=== PATIENT | female | born 1940 | race Caucasian/White ===

== ENCOUNTER 2021-04-26 10:42 | Inpatient (IN) ==
[2021-04-26] MEDS ORDERED: D5% in Water 1,000 ML IVC PRN (17:05)
[2021-04-26] MEDS ORDERED: *HR* Dextrose 50 % in Water (Vial) 50 ML VIAL IVP PRN (17:05)
[2021-04-26] MEDS ORDERED: Dextrose Gel 15 GM/37.5 ML TUBE PO PRN ×2 (17:05)
[2021-04-26] MEDS: Ipratropium 1 PUFF INHALER IH SCH (21:05)
[2021-04-26] MEDS: Apixaban 5 MG TABLET PO SCH (21:52)
[2021-04-26] MEDS: Insulin DETEMIR 100 UNIT/ML X5UNITS SUBQ SCH (21:52)
[2021-04-26] MEDS: Nystatin POWDER 30 GM BOTTLE TP SCH (21:52)
[2021-04-27] MEDS: Ipratropium 1 PUFF INHALER IH SCH ×3 (00:33→07:54)
[2021-04-27] MEDS: Insulin LISPRO 300 UNITS/3 ML VIAL SUBQ SCH ×3 (09:20→16:47)
[2021-04-27] MEDS: Apixaban 5 MG TABLET PO SCH ×2 (09:21→21:55)
[2021-04-27] MEDS: dexAMETHasone 4 MG TABLET PO SCH (09:21)
[2021-04-27] MEDS: Loratadine 10 MG TABLET PO SCH (09:21)
[2021-04-27] MEDS: Metoprolol XL (24 HR) Succ 50 MG TAB.ER.24H PO SCH (09:21)
[2021-04-27] MEDS: Nystatin POWDER 30 GM BOTTLE TP SCH ×2 (09:22→21:56)
[2021-04-27 15:04] LABS: Mean Corpuscular HGB Conc 31.7 g/dL (31.6-35.5); Mean Corpuscular Hemoglobin 28.6 pg (28.0-33.3); Mean Corpuscular Volume 90.1 fL (83.0-100.0); Mean Platelet Volume 10.3 fL (9.4-12.4); Platelet Count 247 K/mcL (140-400); Red Blood Count 4.55 M/mcL (3.82-4.97); Red Cell Distribution Width 14.2 % (11.5-14.5)
[2021-04-27 15:16] LABS: Calcium 8.7 mg/dL (8.6-10.3)
[2021-04-27] MEDS: Insulin DETEMIR 100 UNIT/ML X5UNITS SUBQ SCH (21:55)
[2021-04-28] MEDS: Insulin LISPRO 300 UNITS/3 ML VIAL SUBQ SCH ×3 (08:01→16:53)
[2021-04-28] MEDS: dexAMETHasone 4 MG TABLET PO SCH (08:15)
[2021-04-28] MEDS: Metoprolol XL (24 HR) Succ 50 MG TAB.ER.24H PO SCH (08:15)
[2021-04-28] MEDS: Loratadine 10 MG TABLET PO SCH (08:16)
[2021-04-28] MEDS: Nystatin POWDER 30 GM BOTTLE TP SCH ×2 (08:16→20:51)
[2021-04-28] MEDS: Apixaban 5 MG TABLET PO SCH ×2 (08:16→20:50)
[2021-04-28] MEDS: Insulin DETEMIR 100 UNIT/ML X5UNITS SUBQ SCH (20:50)
[2021-04-29 05:41] LABS: Bilirubin,Urine Negative (Negative); Blood,Urine Negative (Negative); Clarity,Urine Slightly Cloudy (Clear); Color,Urine Yellow (Yellow); Glucose,Urine (UA) 100 mg/dL (Normal); Ketones,Urine Negative (Negative); Leukocyte Esterase,Urine Negative (Negative); Nitrite,Urine Negative (Negative); Protein,Urine 30 mg/dL (Neg-Trace); Urobilinogen,Urine Normal (Normal)
[2021-04-29 06:20] LABS: Bacteria,Urine Many per hpf (None-Few); Squamous Epithelial Cell,Urine Few per hpf (None-Few)
[2021-04-29] MEDS: Insulin LISPRO 300 UNITS/3 ML VIAL SUBQ SCH ×3 (07:32→16:56)
[2021-04-29] MEDS: dexAMETHasone 4 MG TABLET PO SCH (08:27)
[2021-04-29] MEDS: Loratadine 10 MG TABLET PO SCH (08:27)
[2021-04-29] MEDS: Nystatin POWDER 30 GM BOTTLE TP SCH ×2 (08:28→20:40)
[2021-04-29] MEDS: Apixaban 5 MG TABLET PO SCH ×2 (08:28→20:39)
[2021-04-29] MEDS: Metoprolol XL (24 HR) Succ 50 MG TAB.ER.24H PO SCH (08:28)
[2021-04-29] MEDS: Insulin DETEMIR 100 UNIT/ML X5UNITS SUBQ SCH (20:39)
[2021-04-30] MEDS: Insulin LISPRO 300 UNITS/3 ML VIAL SUBQ SCH ×3 (08:51→16:44)
[2021-04-30] MEDS: Loratadine 10 MG TABLET PO SCH (08:57)
[2021-04-30] MEDS: Apixaban 5 MG TABLET PO SCH ×2 (08:57→20:46)
[2021-04-30] MEDS: Metoprolol XL (24 HR) Succ 50 MG TAB.ER.24H PO SCH (08:57)
[2021-04-30] MEDS: Nystatin POWDER 30 GM BOTTLE TP SCH ×2 (08:58→20:47)
[2021-04-30] MEDS ORDERED: Ondansetron 4 MG/2 ML VIAL IVP PRN (20:41)
[2021-04-30] MEDS: Insulin DETEMIR 100 UNIT/ML X5UNITS SUBQ SCH (20:46)
[2021-04-30] MEDS: Ondansetron ODT 4 MG TAB.RAPDIS SL PRN (21:05)
[2021-05-01] MEDS: Apixaban 5 MG TABLET PO SCH ×2 (10:04→19:58)
[2021-05-01] MEDS: Loratadine 10 MG TABLET PO SCH (10:05)
[2021-05-01] MEDS: Metoprolol XL (24 HR) Succ 50 MG TAB.ER.24H PO SCH (10:05)
[2021-05-01] MEDS: Insulin LISPRO 300 UNITS/3 ML VIAL SUBQ SCH ×3 (10:06→17:11)
[2021-05-01] MEDS: Nystatin POWDER 30 GM BOTTLE TP SCH ×2 (10:06→19:58)
[2021-05-01 14:25] LABS: Hematocrit 40.3 % (35.3-44.9); Hemoglobin 12.8 g/dL (11.5-15.4); Mean Corpuscular HGB Conc 31.8 g/dL (31.6-35.5); Mean Corpuscular Hemoglobin 28.5 pg (28.0-33.3); Mean Corpuscular Volume 89.8 fL (83.0-100.0); Mean Platelet Volume 10.1 fL (9.4-12.4); Platelet Count 256 K/mcL (140-400); Red Blood Count 4.49 M/mcL (3.82-4.97); Red Cell Distribution Width 13.9 % (11.5-14.5); White Blood Count 9.3 K/mcL (4.3-11.1)
[2021-05-01 14:44] LABS: Calcium 8.4 mg/dL (8.6-10.3)
[2021-05-01] MEDS: Insulin DETEMIR 100 UNIT/ML X5UNITS SUBQ SCH (19:58)
[2021-05-02] MEDS: Insulin LISPRO 300 UNITS/3 ML VIAL SUBQ SCH ×3 (07:36→17:04)
[2021-05-02] MEDS: Apixaban 5 MG TABLET PO SCH ×2 (08:52→21:30)
[2021-05-02] MEDS: Metoprolol XL (24 HR) Succ 50 MG TAB.ER.24H PO SCH (08:52)
[2021-05-02] MEDS: Loratadine 10 MG TABLET PO SCH (08:53)
[2021-05-02] MEDS: Nystatin POWDER 30 GM BOTTLE TP SCH ×2 (10:30→21:34)
[2021-05-02] MEDS: Ipratropium 1 PUFF INHALER IH PRN ×2 (15:50→21:42)
[2021-05-02] MEDS: Insulin DETEMIR 100 UNIT/ML X5UNITS SUBQ SCH (21:30)
[2021-05-03] MEDS: Insulin LISPRO 300 UNITS/3 ML VIAL SUBQ SCH ×3 (09:23→17:08)
[2021-05-03] MEDS: Loratadine 10 MG TABLET PO SCH (09:35)
[2021-05-03] MEDS: Apixaban 5 MG TABLET PO SCH ×2 (09:35→21:47)
[2021-05-03] MEDS: Metoprolol XL (24 HR) Succ 50 MG TAB.ER.24H PO SCH (09:35)
[2021-05-03] MEDS: Nystatin POWDER 30 GM BOTTLE TP SCH ×2 (09:36→21:47)
[2021-05-03] MEDS: Ipratropium 1 PUFF INHALER IH PRN (11:10)
[2021-05-03] MEDS: Insulin DETEMIR 100 UNIT/ML X5UNITS SUBQ SCH (21:51)
[2021-05-04] MEDS: Insulin LISPRO 300 UNITS/3 ML VIAL SUBQ SCH ×3 (07:54→16:19)
[2021-05-04] MEDS: Metoprolol XL (24 HR) Succ 50 MG TAB.ER.24H PO SCH (09:38)
[2021-05-04] MEDS: Apixaban 5 MG TABLET PO SCH ×2 (09:38→20:05)
[2021-05-04] MEDS: Loratadine 10 MG TABLET PO SCH (09:38)
[2021-05-04] MEDS: Nystatin POWDER 30 GM BOTTLE TP SCH ×2 (09:40→20:05)
[2021-05-04] MEDS: Insulin DETEMIR 100 UNIT/ML X5UNITS SUBQ SCH (20:06)
[2021-05-05] MEDS: Insulin LISPRO 300 UNITS/3 ML VIAL SUBQ SCH ×3 (07:30→17:54)
[2021-05-05] MEDS: Metoprolol XL (24 HR) Succ 50 MG TAB.ER.24H PO SCH (08:54)
[2021-05-05] MEDS: Apixaban 5 MG TABLET PO SCH ×2 (08:54→19:59)
[2021-05-05] MEDS: Loratadine 10 MG TABLET PO SCH (08:54)
[2021-05-05] MEDS: Nystatin POWDER 30 GM BOTTLE TP SCH ×2 (08:55→20:00)
[2021-05-05 09:26] LABS: Basophils % 0.3 %; Eosinophils # 0.1 K/mcL (0.0-0.6); Eosinophils % 1.2 %; Hematocrit 42.3 % (35.3-44.9); Hemoglobin 13.1 g/dL (11.5-15.4); Immature Granulocytes % 0.9 % (0-4); Lymphocytes # 0.8 K/mcL (0.6-4.6); Lymphocytes % 8.2 %; Mean Corpuscular Hemoglobin 28.2 pg (28.0-33.3); Mean Platelet Volume 10.4 fL (9.4-12.4); Monocytes # 0.7 K/mcL (0.0-1.3); Monocytes % 6.9 %; Neutrophils # 7.9 K/mcL (1.6-8.9); Platelet Count 238 K/mcL (140-400); Red Blood Count 4.65 M/mcL (3.82-4.97); Segmented Neutrophils % 82.5 %; White Blood Count 9.6 K/mcL (4.3-11.1)
[2021-05-05 09:45] LABS: Calcium 8.9 mg/dL (8.6-10.3); Potassium 4.4 mEq/L (3.5-5.1)
[2021-05-05] MEDS: Furosemide 20 MG TABLET PO SCH (16:12)
[2021-05-05] MEDS: Insulin DETEMIR 100 UNIT/ML X5UNITS SUBQ SCH (19:59)
[2021-05-06] MEDS: Metoprolol XL (24 HR) Succ 50 MG TAB.ER.24H PO SCH (08:06)
[2021-05-06] MEDS: Apixaban 5 MG TABLET PO SCH ×2 (08:06→21:23)
[2021-05-06] MEDS: Loratadine 10 MG TABLET PO SCH (08:06)
[2021-05-06] MEDS: Furosemide 20 MG TABLET PO SCH (08:06)
[2021-05-06] MEDS: Nystatin POWDER 30 GM BOTTLE TP SCH ×2 (08:07→21:24)
[2021-05-06] MEDS: Insulin LISPRO 300 UNITS/3 ML VIAL SUBQ SCH ×3 (08:07→16:44)
[2021-05-06] MEDS: Insulin DETEMIR 100 UNIT/ML X5UNITS SUBQ SCH (21:23)
[2021-05-07] MEDS: Metoprolol XL (24 HR) Succ 50 MG TAB.ER.24H PO SCH (09:02)
[2021-05-07] MEDS: Insulin LISPRO 300 UNITS/3 ML VIAL SUBQ SCH ×3 (09:03→17:11)
[2021-05-07] MEDS: Apixaban 5 MG TABLET PO SCH ×2 (09:03→20:29)
[2021-05-07] MEDS: Furosemide 20 MG TABLET PO SCH (09:03)
[2021-05-07] MEDS: Loratadine 10 MG TABLET PO SCH (09:03)
[2021-05-07] MEDS: Nystatin POWDER 30 GM BOTTLE TP SCH ×2 (09:48→20:29)
[2021-05-07] MEDS: Insulin DETEMIR 100 UNIT/ML X5UNITS SUBQ SCH (20:29)
[2021-05-08] MEDS: Metoprolol XL (24 HR) Succ 50 MG TAB.ER.24H PO SCH (08:44)
[2021-05-08] MEDS: Loratadine 10 MG TABLET PO SCH (08:45)
[2021-05-08] MEDS: Furosemide 20 MG TABLET PO SCH (08:45)
[2021-05-08] MEDS: Apixaban 5 MG TABLET PO SCH ×2 (08:45→20:21)
[2021-05-08] MEDS: Insulin LISPRO 300 UNITS/3 ML VIAL SUBQ SCH ×3 (08:46→17:41)
[2021-05-08] MEDS: Nystatin POWDER 30 GM BOTTLE TP SCH ×2 (08:47→20:22)
[2021-05-08] MEDS: Insulin DETEMIR 100 UNIT/ML X5UNITS SUBQ SCH (20:22)
[2021-05-09 08:01] VITALS: BP 124/65; PULSE 83; TEMP 98.4
[2021-05-09 08:02] LABS: Basophils % 0.4 %; Eosinophils # 0.2 K/mcL (0.0-0.6); Eosinophils % 1.8 %; Hematocrit 36.5 % (35.3-44.9); Hemoglobin 11.5 g/dL (11.5-15.4); Immature Granulocytes % 0.4 % (0-4); Lymphocytes # 0.8 K/mcL (0.6-4.6); Lymphocytes % 9.7 %; Mean Corpuscular HGB Conc 31.5 g/dL (31.6-35.5); Mean Corpuscular Hemoglobin 28.4 pg (28.0-33.3); Mean Corpuscular Volume 90.1 fL (83.0-100.0); Mean Platelet Volume 10.3 fL (9.4-12.4); Monocytes # 0.7 K/mcL (0.0-1.3); Monocytes % 8.3 %; Neutrophils # 6.7 K/mcL (1.6-8.9); Platelet Count 211 K/mcL (140-400); Red Blood Count 4.05 M/mcL (3.82-4.97); Red Cell Distribution Width 13.8 % (11.5-14.5); Segmented Neutrophils % 79.4 %; White Blood Count 8.4 K/mcL (4.3-11.1)
[2021-05-09 08:18] LABS: Calcium 8.9 mg/dL (8.6-10.3); Potassium 4.4 mEq/L (3.5-5.1)
[2021-05-09] MEDS: Loratadine 10 MG TABLET PO SCH (09:11)
[2021-05-09] MEDS: Metoprolol XL (24 HR) Succ 50 MG TAB.ER.24H PO SCH (09:11)
[2021-05-09] MEDS: Furosemide 20 MG TABLET PO SCH (09:12)
[2021-05-09] MEDS: Apixaban 5 MG TABLET PO SCH (09:12)
[2021-05-09] MEDS: Insulin LISPRO 300 UNITS/3 ML VIAL SUBQ SCH ×2 (09:13→10:55)
[2021-05-09 10:01] VITALS: RESP 18; O2SAT 95
[2021-05-09] MEDS: Nystatin POWDER 30 GM BOTTLE TP SCH (10:14)
[2021-05-09] MEDS: Ondansetron ODT 4 MG TAB.RAPDIS SL PRN (10:54)
== END 2021-05-09 13:05 | disposition home health service (06) | DRG 945 ==
LOC: INPPIK 16:18
PROVIDERS: ADMIT Family Medicine; ATTEND Family Medicine